=== PATIENT | male | born 1980 | race Caucasian/White ===

== ENCOUNTER 2016-08-28 11:53 | Inpatient (IN) ==
[2016-08-28 12:58] LABS: URINE SOURCE CLEAN CATCH
--- NOTE | 2016-08-28 12:58 | PROVIDER DOCUMENTATION ---
HPI-Abdominal Pain/GI Problem - General Chief Complaint: Abdominal Pain Stated Complaint: ABD PAIN Time Seen by Provider: 08/28/16 12:37 Source: patient Allergies/Adverse Reactions: Patient Allergies Allergy/AdvReac Type Severity Reaction Status Date / Time No Known Allergies Allergy Verified 12/05/15 18:54 Home Medications: Home Medication List Medication Instructions Recorded Confirmed Last Taken Type No Home Medications 08/28/16 08/28/16 Unknown History - History of Present Illness-ABD Nature of Presenting Problems: pt is a 35 y/o m present to the Er with complaints of abdominal pain. pt states he think its fluid build up and had one vomiting episode.pt also states he has some welling in both legs. the pain has been in his abdomen for x1 week. Pt has a hx of cirrhosis. pt states he stopped drinking so heavily but still drinks occasionally. pt denies fever, cold, symptoms, congestion or cough. pt states he is having a hard time sleeping at night and a little shortness of breath. pt denies chest pain. Abdominal Pain Onset Location: reports: generalized abdomen Pain Radiation: reports: back Quality of Pain: reports: burning Severity in ED: reports: moderate Onset/Duration: reports: 1 week ago Timing: reports: still present Activities at Onset: reports: none Exposure to sick contacts?: No Modifying Factors: improves with: nothing Associated Symptoms: reports: vomiting (1 episode of vomiting). denies: arm pain, diaphoresis, diarrhea Rectal Bleeding: reports: none Rectal Pain: reports: none Bruising or Bleeding Gums?: No Similar Symptoms Previously?: Yes Recently seen or treated by another doctor?: Yes Review of Systems - Adult - REVIEW OF SYSTEMS - ADULT Constitutional: reports: no symptoms reported Eyes: denies: discharge, dry eyes, decreased vision Ears, Nose, Mouth & Throat: denies: ear discharge, ear pain, hearing loss Cardiovascular: denies: chest pain, edema, heart murmur Respiratory: reports: shortness of breath Gastrointestinal: reports: abdominal pain, nausea, vomiting, other. denies: constipation, frequent heartburn, poor appetite, rectal bleeding Genitourinary: reports: no symptoms reported Musculoskeletal: denies: bone pain, frequent leg cramps, joint pain Integumentary: denies: mole changes, nail changes, rash Neurological: reports: no symptoms reported Psychiatric: reports: no symptoms reported Endocrine: reports: no symptoms reported Hematologic/Lymphatic: reports: no symptoms reported Allergic/Immunologic: reports: no symptoms reported All Other Systems: Reviewed and Negative Past History - Adult - PAST MEDICAL HISTORY-ADULT Review of Records: reports: Nursing Assessment Review Major Childhood Illnesses: reports: denies history Gastrointestinal: reports: liver disease (liver failure) Additional History: chronic pain from [facility] 2004 - PRIOR SURGERIES/PROCEDURES Surgical/Procedure History: reports: reviewed, not pertinent - PRIOR HOSPITALIZATIONS Prior Hospitalizations: reports: none - IMMUNIZATION STATUS Childhood Immunizations: See Nurse Assessment Flu Vaccine: See Nurse Assessment - FAMILY HISTORY Family History: reviewed, not pertinent - SOCIAL HISTORY Smoking: cigarettes Provider spent 3-5 mins advising pt. on dangers of tobacco.: Discussed manners to quit use, and f/u contacts for add'l counseling. Substance Use: none/never Alcohol Use Frequency: never Physical Exam-General - PHYSICAL EXAM-ADULT Initial Vital Signs Reviewed: Yes - CONSTITUTIONAL General Appearance: appears well, alert, no apparent distress - EYES Eyes: PERRL/EOMI, pink conjunctivae, fundi clear, no AV nicking - HEAD, EARS, NOSE, MOUTH & THROAT HENMT: moist mucous membranes, normal ENT inspection - NECK Neck: non-tender, full range of motion - RESPIRATORY Respiratory: chest non-tender, lungs clear, normal breath sounds, no pleuratic chest pain, no respiratory distress, no accessory muscle use - CARDIOVASCULAR Cardiovascular: normal peripheral pulses, regular rate, rhythm, no edema, no gallop, no JVD, no murmur - GASTROINTESTINAL (ABDOMEN) Abdominal Exam: normal bowel sounds, soft, distended, tenderness (TTP generalized abdomen) - LYMPHATIC Lymphatic: no adenopathy - MUSCULOSKELETAL Extremity: normal range of motion, non-tender, swelling (bilateral lower extremity) - SKIN Integumentary: normal turgor, warm/dry, jaundice (skin looks a little yellow but no discoloration in the eyes) - NEUROLOGIC Neurologic: grossly normal, no motor/sensory deficits - PSYCHIATRIC Psych/Mental Status: normal mood/affect, normal thought content, normal thought process, oriented x 3 Progress - PLAN OF CARE/RESULTS Progress/Plan/Lab Results: Laboratory Tests 08/28/16 12:35 Urine Source CLEAN CATCH Urine Color EDOUARD Urine Clarity CLEAR Urine pH 6.5 Ur Specific [place] 1.025 Urine Protein 1+(30 mg/dL) A Urine Ketones TRACE Urine Blood NEGATIVE Urine Nitrite NEGATIVE Urine Bilirubin NEGATIVE Urine Urobilinogen 4+(12 mg/dL) Urine WBC TRACE A Urine Glucose NEGATIVE Orders Category Date Time Status IV Insertion ORDERED Care 08/28/16 12:53 Active FLAT/UPRIGHT ABD/1 VIEW CHEST [RAD] Stat Exams 08/28/16 12:53 Taken AMMONIA [CHEM] Stat Lab 08/28/16 12:40 Received AMYLASE [CHEM] Stat Lab 08/28/16 12:40 Received BNP [PRO B-NATRIURETIC PEPTIDE] Stat Lab 08/28/16 12:40 Received CBC WITH DIFF [HEME] Stat Lab 08/28/16 12:40 Results COMPREHENSIVE METABOLIC PANEL [CHEM] Stat Lab 08/28/16 12:40 Received LIPASE [CHEM] Stat Lab 08/28/16 12:[address] W/POSS RFLX CULT [URINALYSIS] Stat Lab 08/28/16 12:35 Results Vital Signs - 24 hr 08/28/16 12:19 Temperature 98 F Pulse Rate 106 H Respiratory 18 Rate Blood Pressure 137/83 O2 Sat by Pulse 97 Oximetry - XRAY 1 XRAY: Bilateral XRAY Study: Chest, Abdomen (flat/ upright abd/ 1 view chest. Mild constipation) Impression: Normal XRAY Interpretation: Mild constipation Departure - Departure Time of Disposition Order: 14:50 DIAGNOSIS: GI bleed Qualifiers: GI bleed type/associated pathology: unspecified gastrointestinal hemorrhage type Qualified Code(s): K92.2 - Gastrointestinal hemorrhage, unspecified Disposition: ADMITTED INPATIENT 09 Certified Medical Emergency: Emergent Condition: Stable Attestation - Scribe Verification/Attestation Scribe:: Anny Stacy Acting as Scribe for:: Martinez Mondragon Scribe documention review:: This chart was documented by a scribe and accurately reflects the service the provider performed and the decisions made by the provider.
[2016-08-28 13:06] LABS: BILIRUBIN URINE NEGATIVE (NEGATIVE); BLOOD URINE NEGATIVE (NEGATIVE); CLARITY CLEAR (CLEAR); COLOR AMBER; GLUCOSE URINE NEGATIVE (NEGATIVE); LEUKOCYTES URINE TRACE (NEGATIVE); NITRITE URINE NEGATIVE (NEGATIVE); PH URINE 6.5; PROTEIN URINE 1+(30 mg/dL) mg/dL (NEGATIVE); SP GRAVITY URINE 1.025; UROBILINOGEN URINE 4+(12 mg/dL)
[2016-08-28 13:08] LABS: BASO% 0.9 % (0.0-0.8); EOS# 0.17 X1000 (0.0-0.7); EOS% 7.2 % (0.0-10.0); HEMATOCRIT 21.6 % (42.0-52.0); LYMPH# 0.69 X1000 (1.2-3.4); MANUAL DIFF NEEDED? YES; MCH 24.5 PG (27-31); MCHC 27.8 g/dL (33-37); MCV 88.2 FL (81-99); MONO# 0.26 X1000 (0.11-0.59); MONO% 12.3 % (1.7-9.3); PLT 50 X1000 (130-400); RBC 2.12 XMIL (4.7-6.1)
[2016-08-28 13:17] LABS: AGAP 8; ALBUMIN 3.1 g/dL (3.5-5.0); ALKALINE PHOSPHATASE 109 U/L (32-122); AMYLASE 64 U/L (20-200); BUN 9 mg/dL (8-22); CALCIUM 8.5 mg/dL (8.8-10.2); CHLORIDE 108 mmol/L (98-107); COSMO 273; GOT 34 U/L (10-34); GPT 22 U/L (10-44); LIPASE 60 U/L (13-60); POTASSIUM 3.8 mmol/L (3.5-5.1); SODIUM 137 mmol/L (136-145); TCO2 21 mmol/L (25-35); TOTAL PROTEIN 5.5 g/dL (6.3-8.3)
[2016-08-28 13:22] LABS: EOS 6 % (1-10); LYMPHS 38 % (21-51); MONO 10 % (1-9)
[2016-08-28 13:22] LABS: URINE CULTURE PL NEEDED? YES; URINE WBC <10 /HPF (<10)
--- NOTE | 2016-08-28 13:39 | Diag Imaging Result Document ---
PROCEDURE NAME: FLAT/UPRIGHT ABD/1 VIEW CHEST - 08/28/2016 FLAT AND UPRIGHT AND CHEST, FOUR VIEWS: FINDINGS: The lungs are well expanded. There are no infiltrates. No cardiomegaly. No free air beneath the diaphragm. The bowel loops are not dilated. There is stool throughout the colon. No organomegaly. No abnormal abdominal calcifications. IMPRESSION: Mild constipation.
[2016-08-28] MEDS ORDERED: NS 500 ML IV ONE ×6 (13:45→22:08)
[2016-08-28] MEDS ORDERED: PROTONIX 80 MG in NS 80 ML IV SCH (13:45)
[2016-08-28 13:59] LABS: OCCULT BLOOD 1 NEGATIVE (NEGATIVE)
[2016-08-28] MEDS ORDERED: SANDOSTATIN 500 MICROGM in D5W 100 ML IV SCH (14:15)
[2016-08-28 14:28] LABS: INR 1.5 (0.86-1.15); PROTIME 18.4 Seconds (12.1-15.5)
[2016-08-28 14:36] LABS: IRON SATURATION 26 %; TIBC 495 ug/dL; TOTAL IRON 129 ug/dL (53-167); UNBOUND IRON 366 ug/dL (112-346)
[2016-08-28] MEDS ORDERED: VITAMIN K SUBQ ONE (14:46)
[2016-08-28 14:55] LABS: RETIC% 3.89 % (0.8-2.1)
--- NOTE | 2016-08-28 15:35 | Diag Imaging Result Document ---
PROCEDURE NAME: US GB < RUQ (LIMITED) - 08/28/2016 RIGHT UPPER QUADRANT ULTRASOUND: FINDINGS: The pancreas is predominantly obscured. There is a 9 mm cyst in the left lobe of the liver. A moderate amount of fluid is found about the liver. No other focal hepatic abnormality. There are multiple echogenic structures within the gallbladder with movement and posterior shadowing consistent with stones. There is thickening of the gallbladder wall. This is frequently seen with ascites. The common bile duct measures approximately 1 cm. No hydronephrosis to the right kidney. The aorta and inferior vena cava are both poorly seen. IMPRESSION: Cholelithiasis with a moderate amount of ascites.
[2016-08-28 17:55] LABS: FERRITIN 18 ng/mL (30-400)
--- NOTE | 2016-08-28 20:50 | HISTORY AND PHYSICAL ---
CHIEF COMPLAINT: Was weakness and dark stools . H AND P: This is a 35-year-old male significant alcohol abuse history and alcoholic hepatitis history, no known diagnosis of nathalie cirrhosis but has a significant alcohol abuse history. For the last week he has had abdominal swelling, lower extremity swelling, he had episode of nausea, vomiting without blood but he has been passing dark blood black in color. He stopped drinking heavily when he was last admitted in November for alcoholic hepatitis but he still drinks intermittently. Last drink he reports was about 3 weeks ago. He has been having progressive shortness of breath even with mild exertion. He came in for evaluation and was found to be profoundly anemic, coagulopathic, thrombocytopenic, concern over a progressive GI bleed although his rectal exam was heme-negative but I do not think stool was actually assayed on the exam. The patient admitted for upper GI bleed. PAST MEDICAL HISTORY: Again chronic liver disease at this point, possibly early cirrhosis versus alcoholic steatohepatitis. Denies other history. PAST SURGICAL HISTORY: He has had trauma surgery. SOCIAL HISTORY: Smokes up to a pack a day and denies regular alcohol use although had heavy use in the past. ALLERGIES: No known drug allergies. MEDICATIONS: I do not think he is taking regular medications. REVIEW OF SYSTEMS: Otherwise negative times a 10 point review of systems. PHYSICAL EXAMINATION: VITAL SIGNS: Blood pressure 137/83, heart rate 106, respiratory 18, temperature 98 degrees, 97% on room air. GENERALLY: Kind of sallow looking gentleman, no focal complaints. HEENT: Pupils equal, round, reactive to light. Extraocular movements were intact. Sclerae were anicteric. NECK: Supple. CARDIOVASCULAR EXAM: Regular rate and rhythm. No murmurs, gallops, or rubs. PULMONARY EXAM: Bilateral breath sounds. No rales. GI: Was soft, nontender, somewhat distended. Positive fluid wave. Bowel sounds are positive. Dilated subcutaneous vessels noted on abdominal exam. EXTREMITIES: No clubbing or cyanosis. LYMPHATIC EXAM: He had 2+ pitting edema to his ankles. NEUROLOGICAL: Nonfocal. MUSCULOSKELETAL: Was 4/5 on all 4 extremities. LABORATORY DATA: White count 2, hemoglobin and hematocrit 6 and 21, platelets of 50,000. Chemistries were okay except albumin a little bit low at 3.6. Urine was unremarkable. Hemoccult was negative. INR was 1.5. PROBLEM LIST: 1. Presumed gastrointestinal bleed. He is heme-negative but reports dark stools and his hemoglobin and hematocrit is 6 and 20. I think he still at most risk for gastrointestinal bleed including variceal bleeding. I will put him on Protonix. We will do serial hemoglobin and hematocrit. GI has been consulted. I am going to go ahead and put him on octreotide because there is a concern over variceal bleeding and we will continue with transfusion improvement. Will hold him NPO for the time being. 2. Chronic liver disease with a concern over possible cirrhosis. We will repeat his right upper quadrant ultrasound to evaluate for his portal pressures and follow closely. He may need secondary workup for cirrhosis although alcoholic or Laennec cirrhosis is most common. 3. Anemia, thrombocytopenia, leukopenia. He is pancytopenic. I think the most common reason would be chronic alcohol use and possibly cirrhosis. We will check vitamin levels, retic count and follow. Transfuse again to get his hemoglobin and hematocrit above 8 and 24, platelets above 100,000 with bleeding. INR, we will use vitamin K and monitor. He may need additional FFP if required. DISPOSITION: Pending his multiple workup.
[2016-08-28] MEDS ORDERED: ZOFRAN IV PRN (20:51)
[2016-08-28 21:33] LABS: HEMATOCRIT 23.6 % (42.0-52.0); HEMOGLOBIN 6.8 g/dL (14.0-18.0)
[2016-08-28] MEDS: NS 1,000 ML IV SCH (21:47)
[2016-08-28] MEDS: MORPHINE IV PRN (22:50)
[2016-08-28] MEDS: NICODERM PATCH TD PRN (22:50)
[2016-08-28] MEDS: PROTONIX 80 MG in NS 80 ML IV SCH (23:52)
[2016-08-28] MEDS: SANDOSTATIN 500 MICROGM in D5W 100 ML IV SCH (23:53)
[2016-08-29] MEDS: MORPHINE IV PRN ×2 (02:41→07:53)
[2016-08-29 05:36] LABS: INR 1.35; PROTIME 14.4 Seconds (9.2-11.7)
[2016-08-29 05:50] LABS: AGAP 11; ALBUMIN 2.6 g/dL (3.5-5.0); ALKALINE PHOSPHATASE 85 U/L (32-122); BUN 8 mg/dL (8-22); CALCIUM 7.6 mg/dL (8.8-10.2); CHLORIDE 106 mmol/L (98-107); COSMO 272; GOT 28 U/L (10-34); GPT 19 U/L (10-44); POTASSIUM 4.3 mmol/L (3.5-5.1); SODIUM 137 mmol/L (136-145); TCO2 20 mmol/L (25-35); TOTAL BILIRUBIN 1.83 mg/dL (0.20-1.00)
[2016-08-29] MEDS ORDERED: HUMULIN R ONE (06:07)
[2016-08-29 06:08] LABS: HEMOGLOBIN 6.9 g/dL (14.0-18.0); MCV 86.8 FL (81-99); MPV 10.9 FL (7.4-10.4); RBC 2.65 XMIL (4.7-6.1)
[2016-08-29] MEDS: SANDOSTATIN 500 MICROGM in D5W 100 ML IV SCH ×2 (09:47→19:19)
[2016-08-29] MEDS: PROTONIX 80 MG in NS 80 ML IV SCH ×2 (09:47→19:20)
[2016-08-29] MEDS: NS 1,000 ML IV SCH ×2 (09:48→21:15)
[2016-08-29] MEDS ORDERED: MORPHINE IV PRN (10:10)
[2016-08-29 10:11] LABS: HEMATOCRIT 25.5 % (42.0-52.0); HEMOGLOBIN 7.8 g/dL (14.0-18.0)
--- NOTE | 2016-08-29 14:41 | PROGRESS NOTE ---
DATE: 08/29/2016 SUBJECTIVE: This patient states that he is feeling better, he is still complaining of abdominal pain, he denies nausea, vomiting, diarrhea, constipation. The father and girlfriend are at the bedside. I had a large conversation with the family and also with the patient about nicotine, alcohol and narcotics dependence. As per the family this patient has been having trouble with narcotics to the point that he is always asking for that and if he cannot get it somebody from outside can bring the narcotics to the hospital. Apparently that happened before. I talked to him about a detox center and he is willing to talk to them and maybe to go over there. He seems to understand that he needs help. His hemoglobin is low and he will get 2 more units of PRBCs, gastroenterology has been consulted already. He has morphine p.r.n. q.4 hours. I will change it to q.12 hours and I will put Ativan p.r.n. in case of withdrawal/agitation. OBJECTIVE: Vital Signs: Temperature 98.1 degrees, pulse 94, respiratory rate 16, blood pressure 155/91, O2 saturation 97 on room air. HEENT: Head normocephalic. No trauma. PERRLA. Neck: Supple. No JVD. No masses. Central trachea. Chest: Clear to auscultation. No wheezing. No rales. Cardiovascular: RRR. No murmurs. No gallops. No rubs. Abdomen: Soft. Mild tenderness to palpation in the epigastric area and lower abdomen. The abdomen is distended. Probably he has ascites. Extremities: 3+ lower extremity edema. Neurological Examination: This patient is alert and oriented x3. No focal neurological deficits. DATA: He has a upper quadrant ultrasound that showed cholelithiasis with moderate amount of ascites, he has a 9 mm cyst in the left lobe of the liver. No other focal hepatic abnormality. LABORATORY: WBC 2.7, hemoglobin 7.8, hematocrit 25.5, platelets 52,000. PT 14.4, INR 1.3. Sodium 137, potassium 4.3, chloride 106, bicarbonate 20, BUN 8, creatinine 0.8, glucose 104, calcium 7.6. ASSESSMENT AND PLAN: 1. Presumed gastrointestinal bleed. Gastroenterology has been consulted. He has been getting packed red blood cells because of his low hemoglobin. He will stay NPO for the time being. 2. Chronic liver disease with a concern over possible cirrhosis. We had a ultrasound result that did not show any liver cirrhosis but this patient is having ascites and also lower extremity edema. We will continue with the treatment for now. I will ask for hepatitis panel. 3. Pancytopenia probably related to chronic alcohol abuse. Will continue monitoring this patient and transfusing this patient. INR is better controlled. 4. Nicotine, alcohol, narcotic dependent. I had a large conversation with the patient and also with the family about this condition and he seems to understand. He is willing to go to a detox center. I already put the order for the social work faculty member. I will decrease the frequency of morphine and I will put Ativan p.r.n. in case of agitation/withdrawal. MTDD
[2016-08-29] MEDS ORDERED: EPINEPHRINE SYRINGE ONE (15:42)
[2016-08-29] MEDS ORDERED: DIPRIVAN 1% ONE (16:03)
[2016-08-29] MEDS ORDERED: MYLICON DROPS (DOSE) MISC ONE (16:15)
--- NOTE | 2016-08-29 19:55 | OPERATIVE NOTE ---
PROCEDURE DATE: 08/29/2016 PROCEDURE: Esophagogastroduodenoscopy. PREOPERATIVE DIAGNOSIS: Rule out gastrointestinal bleed. POSTOPERATIVE DIAGNOSIS: Esophageal varices. No active bleeding. DESCRIPTION OF OPERATION: After informed consent and adequate intravenous sedation, the scope was introduced through the esophagus. The patient had wound single plane of esophageal varices grade 2, no active bleeding. The stomach is devoid of any blood. Duodenum is free and scope was withdrawn. The patient tolerated the procedure well. The patient gives history of melenic stools about 2 weeks ago. We will set him up for serial banding. We can start reducing his octreotide and advance the diet.
[2016-08-29] MEDS: NICODERM PATCH TD PRN (20:20)
[2016-08-29 20:41] LABS: HEMATOCRIT 30.3 % (42.0-52.0); HEMOGLOBIN 9.5 g/dL (14.0-18.0)
[2016-08-30] MEDS: NS 1,000 ML IV SCH ×2 (04:06→11:08)
[2016-08-30] MEDS: SANDOSTATIN 500 MICROGM in D5W 100 ML IV SCH ×2 (05:00→06:17)
[2016-08-30 05:29] LABS: BASO% 0.3 % (0.0-0.8); EOS# 0.12 X1000 (0.0-0.7); EOS% 3.2 % (0.0-10.0); HEMATOCRIT 27.3 % (42.0-52.0); HEMOGLOBIN 8.6 g/dL (14.0-18.0); LYMPH% 18.9 % (20.5-51.1); MANUAL DIFF NEEDED? NO; MCH 27.1 PG (27-31); MCHC 31.5 g/dL (33-37); MCV 86.1 FL (81-99); MONO# 0.45 X1000 (0.11-0.59); MONO% 12.1 % (1.7-9.3); MPV 11.4 FL (7.4-10.4); NEUT% 65.5 % (42.2-75.2); PLT 50 X1000 (130-400); RBC 3.17 XMIL (4.7-6.1)
[2016-08-30 06:08] LABS: AGAP 11; BUN 7 mg/dL (8-22); CALCIUM 7.6 mg/dL (8.8-10.2); CHLORIDE 105 mmol/L (98-107); COSMO 272; POTASSIUM 3.9 mmol/L (3.5-5.1); SODIUM 137 mmol/L (136-145); TCO2 21 mmol/L (25-35)
[2016-08-30] MEDS: PROTONIX 80 MG in NS 80 ML IV SCH (06:14)
[2016-08-30] MEDS ORDERED: XYLOCAINE-MPF 2% ONE (08:00)
--- NOTE | 2016-08-30 11:38 | PROGRESS NOTE ---
DATE: 08/30/2016 SUBJECTIVE: This patient states that he is feeling better, he is not complaining of pain at this moment. He is complaining of abdominal distention secondary to ascites. The family member is at the bedside. I discussed again the risks of drinking, smoking and opiate abuse. OBJECTIVE: Vital Signs: Temperature 98.4 degrees, pulse 94, respiratory rate 18, blood pressure 138/82. O2 saturation 99 on room air. HEENT: Head normocephalic. No trauma. PERRLA. Neck: Supple. No JVD. No masses. Central trachea. Chest: Clear to auscultation. No wheezing. No rales. Cardiovascular: RRR. No murmurs. Abdomen: Soft. Distended. Positive bowel sounds, positive wave sign. This patient has ascites. Extremities: 3+ lower extremity edema. No clubbing. No cyanosis. Neurological: The patient is alert and oriented x3. No focal neurological deficits. LABORATORY: WBC 3.7, hemoglobin 8.6, hematocrit 27.3, and platelets 50,000. Sodium 137, potassium 3.9, chloride 105, bicarbonate 21, BUN 7, creatinine 0.8, glucose 102 and calcium 7.6. ASSESSMENT AND PLAN: 1. Presumed gastrointestinal bleed. Gastroenterology Department did an upper endoscopy and they did not find any source of bleed. This patient has esophageal varices. Dr. Dillon recommended serial banding on this patient. I already advanced diet and I stopped the pantoprazole drip and octreotide drip. I will put this patient on pantoprazole p.o. 2. Chronic liver disease with concern of her possible cirrhosis. Even though the ultrasound did not show any liver cirrhosis, this patient is having ascites, lower extremity edema and esophageal viruses, pending the hepatitis panel. I will start this patient on furosemide and probably I will start this patient on spironolactone. 3. Pancytopenia probably related to chronic alcohol abuse and liver failure. 4. Nicotine, alcohol and narcotic dependent. I had a really large conversation again today with him and his family about this. He seems to understand and he is willing also to go to a detox center. I already talked to the social insurance administrator about this. They are working on that. CRITICAL CARE TIME: 30 minutes.
[2016-08-30] MEDS: LACTULOSE PO SCH (12:02)
[2016-08-30] MEDS: ATIVAN IV PRN (16:00)
[2016-08-31] MEDS: NS 1,000 ML IV SCH (03:41)
[2016-08-31 05:43] LABS: AGAP 9; BUN 7 mg/dL (8-22); CALCIUM 7.2 mg/dL (8.8-10.2); CHLORIDE 109 mmol/L (98-107); COSMO 274; POTASSIUM 3.7 mmol/L (3.5-5.1); SODIUM 138 mmol/L (136-145); TCO2 20 mmol/L (25-35)
[2016-08-31 05:50] LABS: BASO% 0.3 % (0.0-0.8); EOS# 0.11 X1000 (0.0-0.7); EOS% 3.2 % (0.0-10.0); HEMATOCRIT 27.2 % (42.0-52.0); HEMOGLOBIN 8.3 g/dL (14.0-18.0); LYMPH% 20.6 % (20.5-51.1); MANUAL DIFF NEEDED? YES; MCH 26.6 PG (27-31); MCHC 30.5 g/dL (33-37); MCV 87.2 FL (81-99); MONO% 14.7 % (1.7-9.3); NEUT% 61.2 % (42.2-75.2); PLT 46 X1000 (130-400); RBC 3.12 XMIL (4.7-6.1)
[2016-08-31] MEDS: PROTONIX PO SCH (06:30)
[2016-08-31 08:28] LABS: EOS 1 % (1-10); LYMPHS 15 % (21-51); MONO 8 % (1-9)
[2016-08-31] MEDS: VITAMIN B-1 PO SCH (09:20)
[2016-08-31] MEDS: LASIX PO SCH (09:20)
[2016-08-31] MEDS: LACTULOSE PO SCH (09:20)
[2016-08-31 10:59] LABS: HEPATITIS PROFILE ACUTE SEE COMMENTS (())
[2016-08-31] MEDS ORDERED: VITAMIN K 10 MG in NS 50 ML IV ONE (11:28)
--- NOTE | 2016-08-31 11:31 | PROGRESS NOTE ---
DATE: 08/31/2016 SUBJECTIVE: This patient states that he is feeling better. He is complaining about abdominal distention and discomfort. Today, I had a conversation with the patient about hepatic encephalopathy if this patient does not take lactulose. I told him that it is extremely important to take lactulose to avoid any kind of altered mental status. I told him that at least, he needs to go to the bathroom between 2-3 times per day. He needs to go for a bowel movement to the bathroom for a bowel movement between 2-3 times per day. Today, hopefully, the detox center will come by and evaluate this patient for possible admission. OBJECTIVE: Vital Signs: Temperature 99.5 degrees, pulse 94, respiratory rate 18, blood pressure 129/83, oxygen saturation 96 on room air. HEENT: Head normocephalic. No trauma. PERRLA. Neck: Supple. No JVD. No masses. Central trachea. Chest: Clear to auscultation. No wheezing. Mild rales at the bases. Abdomen: Soft, distended. Positive wave sign. Mild generalized tenderness to palpation. Extremities: There is 3+ lower extremity edema. No clubbing. No cyanosis. Neurological Examination: The patient is alert and oriented x3. No focal neurological deficits. Laboratory: WBC 3.3, hemoglobin 8.3, hematocrit 27.2, platelets 46,000. Sodium 138, potassium 3.7, chloride 109, bicarbonate 20, BUN 7, creatinine 0.8, glucose 97, calcium 7.2. ASSESSMENT AND PLAN: 1. Presumed gastrointestinal bleed. Gastroenterology department did an upper endoscopy and they did not find any source of bleed. This patient has esophageal viruses. Dr. Dillon recommended serial banding on this patient. He is tolerating orals and I will start this patient on lactulose, furosemide, and spironolactone. 2. Chronic liver disease with concern of possible cirrhosis. Even though the ultrasound did not show any liver cirrhosis, this patient is having ascites, lower extremity edema, esophageal varices. Pending the hepatitis panel, I will start this patient on furosemide, lactulose, and spironolactone, and follow up with gastroenterology. 3. Pancytopenia, probably related to liver disease and chronic alcohol abuse. 4. Nicotine, alcohol, and narcotic dependence. I have been having conversations with this patient. Today, I talked to him again about the risks of having alcohol and nicotine and narcotic problems. Today, a detox center is going to come by and talk to him to see if he qualifies to go with them. CRITICAL CARE TIME: 35 minutes. This patient is stable at this moment. I will transfer this patient to the medical floor with monitoring with telemetry.
[2016-08-31] MEDS: CENTRUM SILVER PO SCH ×2 (11:52→21:49)
--- NOTE | 2016-08-31 12:30 | PROGRESS NOTE ---
DATE: 08/31/2016 SUBJECTIVE: The patient is resting in bed. The [facility] nursing staff is interviewing the patient. The patient denies any vomiting blood or passing blood in the stools. PHYSICAL EXAMINATION: Vitals: Temperature 99.5 degrees, pulse rate of 94, respiratory rate 18, blood pressure 129/83, saturating 92% on room air. Body weight is 190 pounds. BMI 27.3 kg per meter squared. General Appearance: He is moderately built, moderately nourished, lying in bed, in no acute distress. HEENT: Pale conjunctivae, mild icterus. Neck: Supple. Chest: Decreased. Cardiac Examination: Regular rhythm. Abdomen: Mild protuberance noted. There is positive ascites. No guarding. No rebound. Bowel sounds are heard. Extremities: No cyanosis, clubbing. Bilateral lower extremity edema noted. Neurological: Alert, awake, oriented. LABS: His hemoglobin and hematocrit are 8.3 and 27.2, white count of 3.3, platelet count of 46,000. His INR is 1.35, PT of 14.4, PTT of 56.2. Sodium 138, potassium 3.7, chloride of 109, bicarb of 20, anion gap of 9, BUN of 7, creatinine of 0.8, glucose of 131, calcium is 7.2, phosphorus 3, magnesium 2. Iron of 129, TIBC 495, percent saturation of 26%. GGT of 85, ferritin of 18. Total bilirubin is 1.83, AST 28, ALT 19, alkaline phosphatase 85, total protein is 5, albumin of 2.6. Ammonia of 34. CRP 3.19. Amylase of 64 and lipase of 60. B12 of more than 2000 and folate of more than 40. UA showed trace white cells, 1+ protein. Stool occult was negative on 08/28/2016. Gastroccult was negative in 2016. Toxicology screen positive for methadone. Hepatitis panel is nonreactive. IMAGING: Imaging in the form of ultrasound showed cholelithiasis with moderate amount of ascites. Prior to that, patient had a CT of the abdomen and pelvis done on 11/26/2015 which showed suggestion of mild nodular liver contour, mild cirrhosis cannot be excluded. Somewhat distended gallbladder and common bile duct with suggestion of mild gallbladder wall thickening, and perhaps trace pericholecystic fluid. Splenomegaly was noted. Spleen size at that time was 20 cm. At that time, 11 mm, nonspecific, focal hypodensity was noted involving the right hepatic lobe. This one was not picked up on ultrasound recently. IMPRESSION AND PLAN: 1. Gastrointestinal bleeding and anemia, and esophagogastroduodenoscopy showing grade [address] Dillon. He will benefit from propranolol 10 mg by mouth twice a day on discharge. 2. The patient will need to be on Protonix once daily for 3 months. 3. The patient needs to be completely abstinent from alcohol. 4. The patient has chronic liver disease with cirrhosis and ascites, and pedal edema, likely attributed to history of alcoholism for many decades so I instructed the patient to quit alcohol completely and avoid any hepatotoxic drugs. 5. Thrombocytopenia and anemia. The patient will benefit from centrum silver once daily and avoid any nonsteroidal anti-inflammatory drugs. 6. Coagulopathy. He was given vitamin K during this admission. We will give him one dose today. 7. Nicotine, alcohol, and narcotic dependence. Patient has been having conversation with [facility] for possible rehabilitation. 8. The patient will benefit from Lasix, Aldactone, multivitamin, Protonix, low- sodium diet, and propranolol 10 mg by mouth twice a day. 9. We would like to see the patient back in the clinic in 2 weeks after discharge. [facility]
[2016-08-31] MEDS: INDERAL PO SCH ×2 (12:54→21:49)
--- NOTE | 2016-08-31 14:45 | Diag Imaging Result Document ---
PROCEDURE NAME: US PARACENTESIS - 08/31/2016 ULTRASOUND-GUIDED PARACENTESIS: FINDINGS: The risks and benefits of the procedure were discussed, including the possibility of bleeding, infection, reaction to Lidocaine and puncture of abdominal viscus. The patient agreed to the procedure. Following sterile preparation of the skin and administration of 1% lidocaine to the skin and deeper soft tissues over the right upper quadrant, the paracentesis catheter was inserted and free flow of ascites was obtained. Approximately 1.1 L of straw-colored fluid was collected. Patient tolerated the procedure well. There were no immediate complications. IMPRESSION: Successful ultrasound-guided paracentesis.
[2016-08-31] MEDS: ATIVAN IV PRN ×2 (14:49→23:48)
[2016-08-31] MEDS: DUONEB (A & A) INH PRN ×2 (16:27→19:55)
[2016-09-01] MEDS: PROTONIX PO SCH ×2 (05:55→06:07)
[2016-09-01 06:46] LABS: AGAP 11; BUN 6 mg/dL (8-22); CALCIUM 7.4 mg/dL (8.8-10.2); CHLORIDE 109 mmol/L (98-107); COSMO 275; POTASSIUM 3.7 mmol/L (3.5-5.1); SODIUM 139 mmol/L (136-145); TCO2 19 mmol/L (25-35)
[2016-09-01 07:02] LABS: BASO% 0.3 % (0.0-0.8); EOS# 0.19 X1000 (0.0-0.7); EOS% 6.1 % (0.0-10.0); HEMATOCRIT 27.9 % (42.0-52.0); HEMOGLOBIN 8.5 g/dL (14.0-18.0); LYMPH# 0.67 X1000 (1.2-3.4); LYMPH% 21.3 % (20.5-51.1); MANUAL DIFF NEEDED? YES; MCH 26.6 PG (27-31); MCHC 30.5 g/dL (33-37); MCV 87.2 FL (81-99); MONO# 0.53 X1000 (0.11-0.59); MONO% 16.9 % (1.7-9.3); NEUT% 55.4 % (42.2-75.2); PLT 41 X1000 (130-400)
[2016-09-01 07:15] LABS: EOS 3 % (1-10); HYPOCHROM 1+; LYMPHS 22 % (21-51); MONO 20 % (1-9)
[2016-09-01 07:16] LABS: TARGET CELLS OCCASIONAL
[2016-09-01] MEDS ORDERED: ALDACTONE PO SCH ×2 (09:00)
[2016-09-01] MEDS: INDERAL PO SCH (09:41)
[2016-09-01] MEDS: CENTRUM SILVER PO SCH (09:41)
[2016-09-01] MEDS: LASIX PO SCH (09:41)
[2016-09-01] MEDS: VITAMIN B-1 PO SCH (09:42)
[2016-09-01] MEDS: LACTULOSE PO SCH (09:42)
[2016-09-01] MEDS: ATIVAN IV PRN (09:52)
[2016-09-01 10:37] VITALS: BP 123/74
[2016-09-01] MEDS: DUONEB (A & A) INH PRN (10:53)
[2016-09-01] MEDS ORDERED: LIBRIUM PO SCH (13:00)
--- NOTE | 2016-09-01 18:10 | DISCHARGE SUMMARY ---
ADMISSION DATE: 08/28/2016 DISCHARGE DATE: 09/01/2016 CONSULTATIONS: Dr. Dillon with Gastroenterology. PERTINENT PROCEDURES: Abdominal ultrasound showed cholelithiasis with a moderate amount of ascites. Abdominal x-ray showed mild constipation. EGD to rule out a GI bleed showed esophageal varices but no active bleeding. Ultrasound guided paracentesis for approximately 1.1 L of straw- colored fluid was collected. DISCHARGE DIAGNOSES: 1. Gastrointestinal bleed and anemia status post EGD showing grade [address] Dillon. The patient started on propranolol twice daily as well as Protonix. 2. Alcohol abuse. The patient given education on alcohol use disorder as well as consult with [facility]. They came and spoke with the patient and due to no insurance he was given referrals to the patient as well as family for [place] and [facility] as they are state funded. 3. Thrombocytopenia and anemia. Continue MVI and avoid NSAIDs. 4. Coagulopathy. Patient given vitamin K during this admission. 5. Nicotine, alcohol and narcotic dependence. Again, [facility] facility has been brought in for rehabilitation. However with no insurance he was given information for [facility] facilities. 6. Chronic liver disease with concern of possible cirrhosis. Patient followed by Gastroenterology. They will need to follow up in 2 weeks. 7. Pancytopenia secondary to liver disease and chronic alcohol abuse. HOSPITAL COURSE: Briefly, Mr. Driscoll is a 35-year-old male who has a history of alcoholic hepatitis. No known history of nathalie cirrhosis, but significant alcohol abuse, tobacco abuse as well as necrotic use. For 1 week prior to his admission he had abdominal swelling, lower extremity swelling, and episode of nausea and vomiting without blood. He had been passing dark blood, black in color stools for 2 weeks. He stopped drinking heavily when he was last admitted in November for alcoholic hepatitis but he still drinks intermittently. Last drink reported was 3 weeks ago. He had been progressively getting short of breath with even mild exertion. He came to the ED, was found to be perfectly profoundly anemic, coagulopathic, thrombocytopenic. Concern over progressive GI bleeding although his rectal exam and his stool was negative. The patient was admitted for presumed GI bleed with a hemoglobin and hematocrit of 6 and 20. It was felt that he was mostly high risk for GI bleeding with variceal bleeding. He was placed on Protonix, serial hemoglobulins and hematocrits, as well as an octreotide drip and a GI consult. Patient did undergo an EGD by Dr. Dillon. It revealed a grade 2 esophageal varices with no active bleeding. Dr. Dillon decided they would set him up for serial banding and recommended reducing his octreotide drip and advancing his diet. The patient was started on Lasix as well as Aldactone. They did discuss with him and the family at length about going to a detox center. The patient and family was up open to this. The patient also underwent a paracentesis to help fluid removal, 1.1 L of straw-colored fluid was collected. [facility] did come and speak with the patient and the patient. Due to no insurance they were referred to the [facility] facilities. The patient will also be started on propranolol twice daily at discharge, continue on Protonix. He needs to completely abstain from any alcohol or NSAID use, and avoid any hepatotoxic drugs as well as staying away from any NSAIDs, and starting an MVI and following a low-sodium diet. GI would like to see the patient back in the clinic in 2 weeks. Patient is being discharged home. He has information for the [facility] funded detox centers with [facility]. The patient is being discharged home today. Temperature 98.5 degrees, heart rate 82, respiration 16, blood pressure is 123/74, O2 is 99% on room air. DISCHARGE DIET: Is low sodium. DISCHARGE MEDICATIONS: 1. Aldactone 100 mg p.o. daily. 2. Centrum Silver 1 each p.o. b.i.d. 3. Inderal 10 mg p.o. b.i.d. 4. Lactulose 30 mg p.o. daily. 5. Lasix 40 mg p.o. daily. 6. Protonix 40 mg p.o. daily. 7. Thiamin 100 mg p.o. daily. FOLLOWUP: The patient will need to follow up either with the free clinic and/or primary care physician that is taking on new patient, as well as Dr. Alas in 2 weeks. He is being given information from [facility] about [facility] facilities due to no insurance. The patient is to abstain from alcohol as well as tobacco use and follow a low-sodium diet and avoid NSAIDs and take all medications as prescribed. Patient can return to the ED for any worsening of symptoms. DISCHARGE TIME: Greater than 30 minutes. Dictated by JESSICA Hawkins for Radames Carmichael MD
== END 2016-09-01 14:40 | disposition home or self-care (01) | DRG 378 ==
LOC: P.ED 11:53 → P.EDIPHOLD 15:11 → 3S 19:56 → 4N 08-31 17:01
PROVIDERS: ATTEND Internal Medicine
PROC: 30233N1 Transfusion of Nonautologous Red Blood Cells into Peripheral Vein, Percutaneous Approach (ICD-10-PCS; 2016-08-28)
PROC: 30233R1 Transfusion of Nonautologous Platelets into Peripheral Vein, Percutaneous Approach (ICD-10-PCS; 2016-08-28)
PROC: 0DJ08ZZ Inspection of Upper Intestinal Tract, Via Natural or Artificial Opening Endoscopic (ICD-10-PCS; principal; 2016-08-29 15:40)
PROC: 0W9G3ZZ Drainage of Peritoneal Cavity, Percutaneous Approach (ICD-10-PCS; 2016-08-31)
DX: K92.2 Gastrointestinal hemorrhage, unspecified (principal); D61.818 Other pancytopenia; D68.4 Acquired coagulation factor deficiency; F11.20 Opioid dependence, uncomplicated; F10.288 Alcohol dependence with other alcohol-induced disorder; K70.31 Alcoholic cirrhosis of liver with ascites; F17.210 Nicotine dependence, cigarettes, uncomplicated; I85.10 Secondary esophageal varices without bleeding
CPT/HCPCS: 36415; 49083; 74022; 76705; 80048; 80053; 80074; 81001; 82103; 82140; 82150; 82270; 82390; 82607; 82728; 82746; 83540; 83550; 83690; 83880; 85014; 85018; 85025; 85027; 85045; 85610; 85730; 86038; 86850; 86900; 86901; 86920; 87088; 94640; 94761; C9113; J0171; J2060; J2270; J2354; J2405; J3430; J7030; J7040; J7060; P9016; P9035; S0164